=== PATIENT | female | born 1950 | race Caucasian/White ===

== ENCOUNTER 2018-08-05 14:37 | Inpatient (IN) | payer MEDICAID ==
[~2018-08-05] VITALS: Ht 152.4 cm; Wt 99.0 kg
[~2018-08-05 14:37] MED LIST: ASPI-1158; FURO20TA4; GABA-529; IBUP-2029; LOSA25TA12 PO; METO-396 PO
[2018-08-05 15:17] LABS: BASOPHILS % 0.6 % (0.0-2.0); EOSINOPHILS % 2.1 % (0.0-5.0); HEMATOCRIT. 37.9 % (36.0-48.0); HEMOGLOBIN. 12.8 g/dL (12.0-16.0); LYMPHOCYTES % 29.5 % (20.0-50.0); MEAN CORPUSCULAR HEMOGLOBIN 32.1 pg (28.0-32.0); MEAN PLATELET VOLUME 8.7 fl (7.4-10.4); MONOCYTES % 7.1 % (2.0-8.0); NEUTROPHILS % 60.7 % (40.0-76.0); PLATELET 317 x1000/uL (130-400); RED BLOOD CELL COUNT 3.99 mill/uL (4.2-5.4); RED CELL DISTRIBUTION WIDTH 13.6 % (11.6-14.6)
[2018-08-05 15:26] LABS: CHLORIDE 105 mEq/L (98-107)
[2018-08-05] MEDS ORDERED: ASPIRIN 81MG TABLET PO ONE (16:00)
[2018-08-05] MEDS ORDERED: ALBUTEROL (0.083%) 2.5MG/3ML NEB HHN ONE (16:00)
[2018-08-05 21:15] VITALS: BP 174/70
[2018-08-05 22:15] VITALS: BP 174/70
[2018-08-05] MEDS ORDERED: NAPR-681 MT (22:37)
[2018-08-06] VITALS (7 sets, daily range): BP systolic 128–159; BP diastolic 54–84
[2018-08-06] MEDS ORDERED: GUAIFENESIN/DM 600MG/30MG ER TAB 12HR PO PRN (09:00)
[2018-08-06] MEDS ORDERED: CLONIDINE 0.1MG TABLET PO PRN (11:00)
[2018-08-06] MEDS ORDERED: CLONIDINE 0.2MG TABLET PO PRN (11:00)
[2018-08-06] MEDS: LOSARTAN POTASSIUM 25 MG TABLET PO SCH ×3 (11:00→20:24)
[2018-08-06] MEDS ORDERED: METOPROLOL TARTRATE 25MG TABLET PO SCH ×2 (11:07→21:00)
[2018-08-06] MEDS: ASPIRIN 81MG EC TABLET PO SCH (13:00)
[2018-08-06] MEDS: GABAPENTIN 100MG CAPSULE PO SCH (21:15)
[2018-08-07] VITALS: BP 162/70
[2018-08-07] MEDS: GABAPENTIN 100MG CAPSULE PO SCH ×3 (06:37→21:15)
[2018-08-07 06:49] VITALS: BP 145/72
[2018-08-07 07:06] LABS: BASOPHILS % 0.7 % (0.0-2.0); EOSINOPHILS % 1.8 % (0.0-5.0); HEMATOCRIT. 36.3 % (36.0-48.0); HEMOGLOBIN. 12.2 g/dL (12.0-16.0); MEAN CORPUSCULAR HEMOGLOBIN 31.8 pg (28.0-32.0); MEAN CORPUSCULAR VOLUME 94.8 fL (81.0-99.0); MEAN PLATELET VOLUME 8.5 fl (7.4-10.4); MONOCYTES % 7.7 % (2.0-8.0); NEUTROPHILS % 65.8 % (40.0-76.0); PLATELET 308 x1000/uL (130-400); RED BLOOD CELL COUNT 3.83 mill/uL (4.2-5.4); RED CELL DISTRIBUTION WIDTH 13.8 % (11.6-14.6)
[2018-08-07 08:00] VITALS: BP 154/47
[2018-08-07 08:01] LABS: CHLORIDE 106 mEq/L (98-107)
[2018-08-07 08:16] LABS: CREATINE KINASE 72 IU/L (26-192); CREATINE KINASE MB FRACTION < 1.0 ng/mL (0.5-3.6); HDL CHOLESTEROL 42 mg/dL (40-59); LDL CHOLESTEROL 108 mg/dL (5-100)
[2018-08-07] MEDS: METOPROLOL TARTRATE 25MG TABLET PO SCH (08:46)
[2018-08-07] MEDS: ASPIRIN 81MG EC TABLET PO SCH (08:47)
[2018-08-07] MEDS: FUROSEMIDE 20MG TABLET PO SCH (08:47)
[2018-08-07] MEDS: LOSARTAN POTASSIUM 25 MG TABLET PO SCH ×2 (08:47→20:43)
[2018-08-07] MEDS ORDERED: LOSARTAN POTASSIUM 25 MG TABLET PO SCH (09:00)
[2018-08-07 12:00] VITALS: BP 156/76
[2018-08-07] MEDS: AZITHROMYCIN 500 MG TABLET PO SCH (13:26)
[2018-08-07] MEDS ORDERED: REGADENOSON 0.4 MG/5 ML IV ONE (15:00)
[2018-08-07 20:00] VITALS: BP 135/51
[2018-08-07] MEDS: AMLODIPINE 2.5MG TABLET PO SCH (20:43)
[2018-08-08] VITALS (7 sets, daily range): BP systolic 123–146; BP diastolic 48–68
[2018-08-08] MEDS: GABAPENTIN 100MG CAPSULE PO SCH ×2 (06:00→14:26)
[2018-08-08 07:10] LABS: HEMATOCRIT 37.2 % (36.0-48.0); HEMOGLOBIN 12.4 g/dL (12.0-16.0); MEAN CORPUSCULAR HEMOGLOBIN 32.1 pg (28.0-32.0); PLATELET 323 x1000/uL (130-400); RED BLOOD CELL COUNT 3.87 mill/uL (4.2-5.4); RED CELL DISTRIBUTION WIDTH 13.3 % (11.6-14.6)
[2018-08-08 07:53] LABS: CHLORIDE 105 mEq/L (98-107)
[2018-08-08] MEDS: FUROSEMIDE 20MG TABLET PO SCH (10:39)
[2018-08-08] MEDS: ASPIRIN 81MG EC TABLET PO SCH (10:40)
[2018-08-08] MEDS: METOPROLOL TARTRATE 25MG TABLET PO SCH (10:40)
[2018-08-08] MEDS: AZITHROMYCIN 500 MG TABLET PO SCH (10:40)
[2018-08-08] MEDS: LOSARTAN POTASSIUM 25 MG TABLET PO SCH (10:40)
[2018-08-08] MEDS: AMLODIPINE 2.5MG TABLET PO SCH (10:40)
[2018-08-08] MEDS ORDERED: AMLO2.5T45 PO (13:26)
== END 2018-08-08 16:50 | disposition home or self-care (01) | DRG 203 ==
LOC: ER 14:37 → 5WST 16:38 → EDBEDREQ 16:40 → ENRESERV 19:39
PROVIDERS: ADMIT Internal Medicine; ATTEND Internal Medicine
DX: M94.0 Chondrocostal junction syndrome [Tietze] (principal); I50.43 Acute on chronic combined systolic (congestive) and diastolic (congestive) heart failure; E66.01 Morbid (severe) obesity due to excess calories; G62.9 Polyneuropathy, unspecified; I11.0 Hypertensive heart disease with heart failure; E66.9 Obesity, unspecified; I50.9 Heart failure, unspecified; K21.9 Gastro-esophageal reflux disease without esophagitis; M19.90 Unspecified osteoarthritis, unspecified site; Z79.899 Other long term (current) drug therapy; Z71.89 Other specified counseling; Z68.41 Body mass index [BMI] 40.0-44.9, adult; Z79.82 Long term (current) use of aspirin
CPT/HCPCS: 36415; 71045; 78452; 80048; 80061; 82550; 82553; 83036; 83735; 83880; 84481; 84484; 85027; 85379; 93005; 93017; 93306; 93970; 94640; 97162; 97166; 99285; A9500